=== PATIENT | male | born 1990 | race Caucasian/White ===

== ENCOUNTER 2019-01-29 22:32 | Emergency (ER) | payer MEDICAID, OTHER ==
[~2019-01-29] VITALS: Ht 177.8 cm; Wt 78.5 kg
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
--- NOTE | 2019-01-29 23:27 | NUR ---
ERMD at bedside for MSE
[2019-01-29] MEDS ORDERED: TDAP DIPH,PERTUSS,TET VAC/PF 0.5 ML DISP.SYRIN IM ONE ×2 (23:41→23:45)
--- NOTE | 2019-01-29 23:43 | NUR ---
Patient refused TDAP injection. CASEYD made aware.
--- NOTE | 2019-01-30 00:20 | NUR ---
Patient given written and verbal discharge instructions. Patient verbalizes understanding of instructions. Patient is ambulatory with steady gait. Refuses offer of detention placement. Patient given list of available shelters in surrounding area. Provided food, drinks, and clothes.
== END 2019-01-30 00:30 | disposition home or self-care (01) ==
LOC: ER 22:32
DX: S42.032A Displaced fracture of lateral end of left clavicle, initial encounter for closed fracture (principal); Z88.0 Allergy status to penicillin; V19.9XXA Pedal cyclist (driver) (passenger) injured in unspecified traffic accident, initial encounter; Y93.89 Activity, other specified; Y92.89 Other specified places as the place of occurrence of the external cause; Y99.8 Other external cause status
CPT/HCPCS: 73030; 90715; A4663